=== PATIENT | female | born 1985 | race Two or more races ===

== ENCOUNTER 2017-04-06 14:42 | Emergency (ER) | payer OTHER ==
[~2017-04-06] VITALS: Ht 160 cm; Wt 81.6 kg
[2017-04-06 15:22] VITALS: BP 142/79
--- NOTE | 2017-04-06 15:58 | Diagnostic Imaging Report ---
Indication: Headache Technique: Contiguous 5 mm thick transaxial imaging of the head obtained in a Siemens Sensation [address] scanner. Soft tissue and bone windows generated. Automatic Exposure Control was utilized. Total Dose length Product (DLP): 1362.[address] Dose Index Volume (CTDIvol): 70.38 mGy Comparison: none Findings: The size and configuration of the cortical sulci, basal cisterns, and ventricles are within normal limits for age. There is no mass effect, midline shift, or edema identified. There is no evidence of acute hemorrhage or abnormal intra-axial or extra-axial fluid collections. The bones and soft tissues are unremarkable. Impression: No mass effect, edema or acute bleed. The CT scanner at [facility] is accredited by the [employer] and the scans are performed using dose optimization techniques as appropriate to a performed exam including Automatic Exposure control.
--- NOTE | 2017-04-06 16:19 | Diagnostic Imaging Report ---
Indication: Trauma. Facial pain Technique: Continuous helical transaxial imaging of the maxillofacial structures obtained without intravenous contrast administration. Coronal 2-D reformats were also obtained. Study obtained in a Siemens sensation [address] Automatic Exposure Control was utilized. Total Dose length Product (DLP): 581.[address] Dose Index Volume (CTDIvol): 28.19 mGy Comparison: None Findings: There is no evidence of an acute fracture. Paranasal sinuses and mastoids are clear. Soft tissues are unremarkable. IMPRESSION: Negative exam. No acute injury identified The CT scanner at [facility] is accredited by the [employer] and the scans are performed using dose optimization techniques as appropriate to a performed exam including Automatic Exposure control.
[2017-04-06] MEDS ORDERED: IBUPROFEN600 MG ORAL (16:26)
[2017-04-06] MEDS ORDERED: ACETAMINOPHEN-1 EAC1 ORAL (16:26)
[2017-04-06 16:36] VITALS: BP 160/98
--- NOTE | 2017-04-06 22:39 | Emergency Room Report ---
History of Present Illness General Chief Complaint: Headache Source: Patient Present Illness HPI The patient is a 32-year-old female presenting for left eye pain and headache. She states that she was at work 4 days ago when a metal object struck her left eye. She denies loss of consciousness. Pain has continued and is a 7/10 dull ache. Worse with touch. Pain radiates to the back of her head. She denies symptoms including dizziness, Nausea, vomiting, fever, chills Allergies: Coded Allergies: No Known Allergies (Unverified , 04/06/17) Patient History Past Medical History: see triage record Pertinent Family History: none Last Menstrual Period: 03/12/17 Now: No Reviewed Nursing Documentation: PMH: Agreed, PSxH: Agreed Nursing Documentation-PMH Past Medical History: No Stated History Review of Systems All Other Systems: negative except mentioned in HPI Physical Exam Vital Signs Date Time Temp Pulse Resp B/P (MAP) Pulse Ox O2 Delivery O2 Flow Rate FiO2 04/06/17 15:12 99.0 108 20 142/79 100 Room Air Sp02 EP Interpretation: reviewed, normal General Appearance: no apparent distress, alert, GCS 15, non-toxic Head: normocephalic, atraumatic Eyes: left eye lid inflammation, left eye other - Ecchymosis surrounding eye, bilateral eye PERRL, bilateral eye EOMI ENT: hearing grossly normal, normal pharynx, no angioedema, normal voice Neck: full range of motion, supple/symm/no masses Respiratory: chest non-tender, lungs clear, normal breath sounds, speaking full sentences Musculoskeletal: back normal, gait/station normal, normal range of motion, non- tender Neurologic: alert, oriented x3, responsive, motor strength/tone normal, sensory intact, speech normal Psychiatric: judgement/insight normal, memory normal, mood/affect normal, no suicidal/homicidal ideation Skin: normal color, no rash, warm/dry, well hydrated Medical Decision Making PA Attestation Dr. Nuñez is my supervising physician. Patient management was discussed with my supervising physician Diagnostic Impression: Primary Impression: Facial contusion Qualified Codes: S00.83XA - Contusion of other part of head, initial encounter ER Course The patient is a 32-year-old female presenting for left eye pain after work- related injury Ddx considered include but not limited to Concussion, Orbital blowout fracture, sprain/strain, fracture, contusion PE: NAD HEENT exam reveals ecchymosis surrounding the left eye. PERRL. EOMI CT scan of facial bones and CT head shows no acute findings. The patient be discharged home with pain medication and states that she has appointment to see eye doctor today. ER precautions are given CT/MRI/US Diagnostic Results CT/MRI/US Diagnostic Results : Imaging Test Ordered: CT facial bones and CT head Impression No acute findings Last Vital Signs Date Time Temp Pulse Resp B/P (MAP) Pulse Ox O2 Delivery O2 Flow Rate FiO2 04/06/17 16:36 99.0 94 20 160/98 100 Room Air Status: improved Disposition: HOME, SELF-CARE Condition: Improved Scripts Acetaminophen With Codeine (T#3) (TYLENOL #3 TAB*) Y Tab 1 TAB ORAL Q6HR Y for For Pain, #10 TAB Prov: IRWIN LUJAN 04/06/17 Ibuprofen* (MOTRIN*) 600 Mg Tablet 600 MG ORAL Q8H Y for For Pain, #30 TAB 0 Refills Prov: IRWIN LUJAN.Naida 04/06/17 Referrals: NOT CHOSEN IPA/MD,REFERRING (PCP) Patient Instructions: Facial or Scalp Contusion Additional Instructions: I discussed my findings with the patient. All questions and concerns have been answered. Treatment and medication compliance have been addressed. I advised the patient that they need to follow up with primary doctor within 3 days. Return to ED if symptoms worsen, new symptoms arise, or if needed for any reason. Patient verbalized understanding of discharge instructions. IRWIN LUJAN Apr 06, 2017 22:39
== END 2017-04-06 16:37 | disposition home or self-care (01) ==
LOC: EMR 15:46
DX: S00.83XA Contusion of other part of head, initial encounter (principal); W22.8XXA Striking against or struck by other objects, initial encounter; Y92.89 Other specified places as the place of occurrence of the external cause; R51 Headache
CPT/HCPCS: 70450; 70486; 99284